=== PATIENT | male | born 1965 | race American Indian/Alaskan Native ===

== ENCOUNTER 2018-11-04 07:36 | Emergency (ER) | payer SELFPAY ==
--- NOTE | 2018-11-04 08:16 | Emergency Department Report ---
HPI - General Chief Complaint: Neck Pain/Injury Time Seen by Provider: 11/04/18 07:56 - HPI HPI: 53-year-old -[place] male presents to the emergency department from work via EMS with complaint of a headache, neck pain and back pain, and right elbow pain, after a large rolled up rug and fell over and hit him in the head. He says that he was knocked to the ground but he denies being knocked unconscious. He had some dizziness at the time. He presents on a backboard and in a c- collar. He did not receive anything for his discomfort prior to arrival. He denies any past medical history. He denies any numbness or paresthesias, inability to move his extremities or pain in the extremities, or any neurological deficits. ED Past Medical Hx - Past Medical History Previous Medical History?: No - Surgical History Past Surgical History?: No - Social History Smoking Status: Current Every Day Smoker Substance Use Type: Alcohol - Medications Home Medications: Home Medications Medication Instructions Recorded Confirmed Last Taken Type Cyclobenzaprine [Flexeril] 10 mg PO TID PRN #12 tablet 11/04/18 Unknown Rx Ibuprofen 800 mg PO Q8H PRN #20 tablet 11/04/18 Unknown Rx ED Review of Systems ROS: Stated complaint: NECK PAIN Other details as noted in HPI Comment: All other systems reviewed and negative Constitutional: denies: chills, fever Eyes: denies: eye pain, vision change ENT: denies: ear pain, throat pain Respiratory: denies: cough, shortness of breath Cardiovascular: denies: chest pain, palpitations Gastrointestinal: denies: abdominal pain, vomiting Genitourinary: denies: dysuria, discharge Musculoskeletal: back pain, arthralgia. denies: joint swelling Skin: denies: rash, lesions Neurological: headache. denies: weakness, numbness, paresthesias Physical Exam - Physical Exam Vital Signs: Vital Signs 11/04/18 11/04/18 11/04/18 07:46 08:01 08:02 Temperature 98.8 F Pulse Rate 71 68 Respiratory 18 18 16 Rate Blood Pressure 139/83 Blood Pressure 138/84 [Left] O2 Sat by Pulse 98 99 99 Oximetry Physical Exam: GENERAL: The patient is well-developed well-nourished. HEENT: Normocephalic. Atraumatic. Patient has moist mucous membranes. EYES: Extraocular motions are intact. Pupils are equal and reactive to light bilaterally. NECK: Supple. Trachea is midline. There is midline and bilateral paraspinal tenderness to palpation. No step-off or deformity. CHEST/LUNGS: Clear to auscultation. There is no respiratory distress noted. HEART/CARDIOVASCULAR: Regular. There is no tachycardia. There is no obvious murmur. ABDOMEN: Abdomen is soft, nontender. Patient has normal bowel sounds. There is no abdominal distention. SKIN: Skin is warm and dry. NEURO: The patient is awake, alert, and oriented. The patient is cooperative. The patient has no focal neurologic deficits. The patient has normal speech. Cranial nerves II 12 grossly intact. MUSCULOSKELETAL: There is no tenderness or deformity. There is no limitation range of motion. There is no evidence of acute injury. Muscle strength 5 out of 5 upper and lower extremities bilaterally. BACK: There is both midline and bilateral paraspinal thoracic and lumbar ten derness to palpation but no step-off or deformities. ED Course Vital Signs 11/04/18 11/04/18 11/04/18 07:46 08:01 08:02 Temperature 98.8 F Pulse Rate 71 68 Respiratory 18 18 16 Rate Blood Pressure 139/83 Blood Pressure 138/84 [Left] O2 Sat by Pulse 98 99 99 Oximetry ED Medical Decision Making - Radiology Data Radiology results: report reviewed, image reviewed interpreted by me: X-ray of the right elbow does not show any fracture, dislocation or any acute process. X-rays of the thoracic and lumbar spine do not show any fracture, subluxation, or any other acute process. CT HEAD WITHOUT CONTRAST INDICATION: Trauma. COMPARISON: None similar at this institution. FINDINGS: Noncontrast head CT slightly limited due to patient's head tilt/position, though demonstrates symmetric, age-appropriate ventricles and sulci. Slight periventricular hypodensities. Minimal, benign bilateral basal ganglia calcifications. No definite acute infarct, hemorrhage, mass effect or midline shift. No abnormal extra axial fluid collections. Normal posterior fossa with preserved basilar cisterns. Normal imaged eye globes. Nasal septal deviation. Mild right and minimal left maxillary sinus mucosal thickening inferiorly. Slight sphenoid sinus mucosal thickening anteriorly as well, more so on the right. Clear remainder imaged paranasal sinuses and mastoid air cells. Intact calvarium. Normal scalp. Few missing teeth. Cervical spondylosis. CONCLUSION: No acute intracranial CT abnormality with few other findings, as above. CT CERVICAL SPINE WITHOUT CONTRAST INDICATION: Trauma. COMPARISON: None similar. FINDINGS: Noncontrast axial, sagittal and coronal CT reconstructions through the cervical spine demonstrate normal imaged posterior fossa. Intact craniocervical articulation, dens, anterior and posterior arches of C1, prevertebral soft tissues and the posterior elements. Preserved airway. Normal imaged thyroid. Mild biapical emphysematous changes/bullae, left more than right, measuring up to 1.7 cm. Normal vertebral body stature with slight straightening, possibly positional versus spasm. Assessment of the spinal canal itself compromised from C6 inferiorly due to shoulder soft tissue artifact. On the obtained axial images: C2-C3 and C3-C4 appear within normal limits. C4-C5 demonstrates mild to moderate disc narrowing and right more than left uncovertebral spurring with neural foraminal narrowing as on axial image 83, series 3. C5-C6 also demonstrates moderate to severe disc narrowing with slight vacuum phenomenon and few endplate irregularities. Diffuse disc bulge/osteophyte complex with mild to moderate bilateral neural foraminal narrowing suspected as on axial image 93. C6-C7, C7-T1 and few other imaged upper thoracic levels appear within normal limits. CONCLUSION: No acute cervical spine CT abnormality with mid to lower cervical spine degenerative changes noted and few other findings, as described. Thank you for the opportunity to participate in this patient's care. Transcribed By: RS Dictated By: MICHAEL JACK MD Electronically Authenticated By: MICHAEL JACK MD Signed Date/Time: 11/04/18 0846 - Medical Decision Making Presents to the emergency department with a complaint of headache, neck pain, right elbow pain, back pain after a large rug/carpeted fell over on top of him causing him to fall to the ground. CT scan of the head did not show any bleed, shift, mass, ischemia, or any other acute process. CT scan of cervical spine also did not show any fracture, subluxation or any acute process. X-rays were done of the right elbow, thoracic and lumbar spines, that did not show any fractures, dislocations, subluxations, or any other acute process. Vital signs stable throughout his ED course. The patient complained of a burning sensation in the back but denies any numbness, problems with bowel or bladder, and does not have any signs of any acute neurological deficits. He appears low suspicion for any of the emergent back conditions such as cauda equina or cord compression syndrome. Patient will be treated with anti-inflammatories and muscle relaxers and he has been given referrals for a large orthopedic group, as well as a local neurosurgeon. The patient will return to the emergency Department with any worsening of his symptoms or any acute distress. - Differential Diagnosis brain bleed, skull fracture, back fracture, subluxation, contusion, muscle Critical Care Time: No Critical care attestation.: If time is entered above; I have spent that time in minutes in the direct care of this critically ill patient, excluding procedure time. ED Disposition Clinical Impression: Trauma Fall Qualifiers: Encounter type: initial encounter Qualified Code(s): W19.XXXA - Unspecified fall, initial encounter Headache Qualifiers: Headache type: unspecified Headache chronicity pattern: acute headache Intractability: not intractable Qualified Code(s): R51 - Headache Back pain Qualifiers: Back pain location: back pain in unspecified location Chronicity: acute Back pain laterality: unspecified Qualified Code(s): M54.9 - Dorsalgia, unspecified Disposition: DC-01 TO HOME OR SELFCARE Is pt being admited?: No Condition: Stable Instructions: Acute Headache (ED), Back Pain (ED) Additional Instructions: Please follow up with her primary care physician in the next few days. I am giving him a referral for an orthopedic group, [facility], as well as a local neurosurgeon, Dr Babb, to follow up regarding your neck and back pains. Return to the emergency Department with any worsening of her symptoms, worsening of pain, migration of pain, new pain, weakness, numbness, or any acute distress. You have been prescribed a medication that can be sedating. Therefore, this medication cannot be taken prior to driving, working, being responsible for children, and cannot be mixed with alcohol of any quantity. Prescriptions: Cyclobenzaprine [Flexeril] 10 mg PO TID PRN #12 tablet PRN Reason: Muscle Spasm Ibuprofen 800 mg PO Q8H PRN #20 tablet PRN Reason: Pain , Severe (7-10) Referrals: MICHAELA NAM MD [Primary Care Provider] - 3-5 Days FLOR BABB MD [Staff Physician] - 3-5 Days [facility] [Provider Group] - 3-5 Days Forms: Work/School Release Form(ED) Time of Disposition: 10:09
--- NOTE | 2018-11-04 08:40 | Cat Scan Report ---
CT HEAD WITHOUT CONTRAST INDICATION: Trauma. COMPARISON: None similar at this institution. FINDINGS: Noncontrast head CT slightly limited due to patient's head tilt/position, though demonstrates symmetric, age-appropriate ventricles and sulci. Slight periventricular hypodensities. Minimal, benign bilateral basal ganglia calcifications. No definite acute infarct, hemorrhage, mass effect or midline shift. No abnormal extra axial fluid collections. Normal posterior fossa with preserved basilar cisterns. Normal imaged eye globes. Nasal septal deviation. Mild right and minimal left maxillary sinus mucosal thickening inferiorly. Slight sphenoid sinus mucosal thickening anteriorly as well, more so on the right. Clear remainder imaged paranasal sinuses and mastoid air cells. Intact calvarium. Normal scalp. Few missing teeth. Cervical spondylosis. CONCLUSION: No acute intracranial CT abnormality with few other findings, as above. Thank you for the opportunity to participate in this patient's care.
[2018-11-04] MEDS ORDERED: TORADOL IM ONE (08:45)
--- NOTE | 2018-11-04 08:49 | Cat Scan Report ---
CT CERVICAL SPINE WITHOUT CONTRAST INDICATION: Trauma. COMPARISON: None similar. FINDINGS: Noncontrast axial, sagittal and coronal CT reconstructions through the cervical spine demonstrate normal imaged posterior fossa. Intact craniocervical articulation, dens, anterior and posterior arches of C1, prevertebral soft tissues and the posterior elements. Preserved airway. Normal imaged thyroid. Mild biapical emphysematous changes/bullae, left more than right, measuring up to 1.7 cm. Normal vertebral body stature with slight straightening, possibly positional versus spasm. Assessment of the spinal canal itself compromised from C6 inferiorly due to shoulder soft tissue artifact. On the obtained axial images: C2-C3 and C3-C4 appear within normal limits. C4-C5 demonstrates mild to moderate disc narrowing and right more than left uncovertebral spurring with neural foraminal narrowing as on axial image 83, series 3. C5-C6 also demonstrates moderate to severe disc narrowing with slight vacuum phenomenon and few endplate irregularities. Diffuse disc bulge/osteophyte complex with mild to moderate bilateral neural foraminal narrowing suspected as on axial image 93. C6-C7, C7-T1 and few other imaged upper thoracic levels appear within normal limits. CONCLUSION: No acute cervical spine CT abnormality with mid to lower cervical spine degenerative changes noted and few other findings, as described. Thank you for the opportunity to participate in this patient's care.
--- NOTE | 2018-11-04 08:51 | XRay Report ---
THORACIC SPINE RADIOGRAPHS INDICATION: Trauma. COMPARISON: None similar. FINDINGS: AP and lateral thoracic spine radiographs demonstrate preserved vertebral body stature, alignment and disc heights. Symmetric pedicles and costovertebral junctions. No abnormal paraspinal density. Clear imaged lungs. Lower thoracic spine degenerative spurring at few levels incidentally noted. CONCLUSION: Lower thoracic spondylosis without acute radiographic abnormality, as described. Please correlate. Thank you for the opportunity to participate in this patient's care.
[2018-11-04] MEDS ORDERED: TYLENOL PO ONE (08:52)
--- NOTE | 2018-11-04 08:54 | XRay Report ---
LUMBAR SPINE RADIOGRAPHS INDICATION: Trauma. COMPARISON: None similar. FINDINGS: AP and lateral lumbar spine radiographs demonstrate normal vertebral body stature and alignment. Fairly preserved disc heights. Upper lumbar and included lower thoracic vertebral body degenerative spurring incidentally noted as also aortoiliac atherosclerotic calcifications. Intact SI joints. Few small pelvic phleboliths. Nonobstructive bowel gas pattern. CONCLUSION: Spondylosis without acute lumbar spine radiographic abnormality, as described. Thank you for the opportunity to participate in this patient's care.
--- NOTE | 2018-11-04 08:56 | XRay Report ---
RIGHT ELBOW RADIOGRAPHS INDICATION: Trauma. COMPARISON: None similar. FINDINGS: AP and lateral right elbow radiographs demonstrate intact bones, including radial head contour. No abnormal fat pad sign. Slight olecranon spurring/enthesophytosis may be developing. CONCLUSION: No acute right elbow radiographic abnormality, as described. Thank you for the opportunity to participate in this patient's care.
[2018-11-04 10:23] VITALS: BP 141/87
== END 2018-11-04 10:25 | disposition home or self-care (01) ==
LOC: ED 07:36
DX: R51 Headache (principal); M54.2 Cervicalgia; M25.521 Pain in right elbow; M54.9 Dorsalgia, unspecified; F17.200 Nicotine dependence, unspecified, uncomplicated; W20.8XXA Other cause of strike by thrown, projected or falling object, initial encounter; X58.XXXA Exposure to other specified factors, initial encounter; Y93.89 Activity, other specified; Y92.89 Other specified places as the place of occurrence of the external cause; Y99.8 Other external cause status
CPT/HCPCS: 70450; 72070; 72100; 72125; 73070; 96372; 99284; J1885